=== PATIENT | male | born 1950 | race Caucasian/White ===

== ENCOUNTER 2020-04-29 12:00 | Inpatient (IN) | payer OTHER ==
[~2020-04-29] VITALS: Ht 170.2 cm; Wt 86.2 kg
[2020-04-29] MEDS ORDERED: CARVEDILOL12.5 M1 PO (15:28)
[2020-05-10] MEDS ORDERED: OMEPRAZOLE20 MG PO (13:32)
[2020-05-10] MEDS ORDERED: PERCOCET 5-3251 EACH PO (13:32)
== END 2020-05-10 15:35 | disposition home or self-care (01) | DRG 331 ==
LOC: EDSTATUS 12:00 → ADM 12:00 → SURH 05-07 12:00
PROVIDERS: ADMIT Surgery; ATTEND Surgery
PROC: 0DTF4ZZ Resection of Right Large Intestine, Percutaneous Endoscopic Approach (ICD-10-PCS; principal; 2020-05-08)
PROC: 07TB4ZZ Resection of Mesenteric Lymphatic, Percutaneous Endoscopic Approach (ICD-10-PCS; 2020-05-08)
DX: D12.2 Benign neoplasm of ascending colon (principal); Z90.49 Acquired absence of other specified parts of digestive tract; Z20.828 Contact with and (suspected) exposure to other viral communicable diseases; K62.82 Dysplasia of anus

== ENCOUNTER 2020-05-03 05:42 | Day surgery (SDC) | payer OTHER ==
[~2020-05-03 05:42] MED LIST: CARVEDILOL12.5 M1 PO
== END 2020-05-03 11:20 | disposition home or self-care (01) ==
LOC: AMB-ENDOS 05:42
PROVIDERS: ATTEND Surgery
DX: D12.2 Benign neoplasm of ascending colon (principal); Z20.828 Contact with and (suspected) exposure to other viral communicable diseases